=== PATIENT | male | born 1950 | race Caucasian/White ===

== ENCOUNTER → 2017-03-30 | Outpatient (CLI) | payer MEDICARE, OTHER | LOC: COL.RAD 08:26 | DX: M25.511 Pain in right shoulder (principal) | CPT/HCPCS: J3301; Q9967 ==

== ENCOUNTER → 2017-05-28 | Outpatient (CLI) | payer MEDICARE, OTHER | LOC: COL.RAD 14:00 | DX: M75.101 Unspecified rotator cuff tear or rupture of right shoulder, not specified as traumatic (principal) | CPT/HCPCS: J3301; Q9967 ==

== ENCOUNTER 2017-08-03 14:42 | Inpatient (IN) | payer MEDICARE, OTHER ==
[~2017-08-03] VITALS: Ht 170.2 cm; Wt 74.7 kg
[2017-09-17] VITALS (12 sets, daily range): BP systolic 110–127; BP diastolic 64–73; PULSE 64–99; TEMP 97.7–98.5
[2017-09-17] MEDS ORDERED: CARDURA 8MG TAB8 MG PO (05:30)
[2017-09-17] MEDS ORDERED: ULTRAM 50MG TAB50 MG PO (05:30)
[2017-09-18 00:17] VITALS: BP 108/64; PULSE 67; TEMP 98.2
[2017-09-18 04:11] VITALS: BP 106/58; PULSE 75; TEMP 98.2
[2017-09-18 07:27] VITALS: BP 108/69; PULSE 75; TEMP 97.9
[2017-09-18] MEDS ORDERED: NORCO 325 MG-7.1 TAB PO (10:46)
[2017-09-18] MEDS ORDERED: ASPIRIN 32325 MG/TAB PO (10:46)
== END 2017-09-18 10:58 | disposition home or self-care (01) | DRG 483 ==
LOC: JCC 09-17 05:14
PROVIDERS: Orthopaedic Surgery
PROC: 0RRJ00Z Replacement of Right Shoulder Joint with Reverse Ball and Socket Synthetic Substitute, Open Approach (ICD-10-PCS; principal; 2017-09-17 07:30)
DX: M19.011 Primary osteoarthritis, right shoulder (principal); Z87.891 Personal history of nicotine dependence
CPT/HCPCS: A9284; C1713; C1776; J0690; J1100; J1170; J1885; J2270; J2405; J2704; J3010; J7120

== ENCOUNTER → 2017-09-10 | Outpatient (CLI) | payer MEDICARE, OTHER ==
[2017-09-10 18:06] LABS: HIV 1/2 Antibodies Non-Reactive; HIV-1p24 Antigen Non-Reactive
== END ==
LOC: COL.LAB 17:10
PROVIDERS: Orthopaedic Surgery
DX: Z01.812 Encounter for preprocedural laboratory examination (principal)

== ENCOUNTER 2022-11-12 10:30 | Outpatient (RCR) | payer MEDICARE, OTHER ==
[~2022-11-12 10:30] MED LIST: ASPIRIN 32325 MG/TAB PO; CARDURA 8MG TAB8 MG PO; NORCO 325 MG-7.1 TAB PO; ULTRAM 50MG TAB50 MG PO
== END 2022-11-20 | disposition home or self-care (01) ==
LOC: WSPT
DX: M25.571 Pain in right ankle and joints of right foot (principal)

== ENCOUNTER 2022-12-19 10:30 | Outpatient (RCR) | payer MEDICARE, OTHER | END 2022-12-20 | disposition home or self-care (01) | LOC: WSPT | DX: M25.571 Pain in right ankle and joints of right foot (principal) ==

== ENCOUNTER 2023-02-16 10:36 | Outpatient (RCR) | payer MEDICARE, OTHER | END 2023-02-19 | disposition home or self-care (01) | LOC: WSPT | DX: M25.571 Pain in right ankle and joints of right foot (principal); Z98.890 Other specified postprocedural states ==

== ENCOUNTER 2023-03-02 12:45 | Outpatient (RCR) | payer MEDICARE, OTHER | END 2023-03-22 | disposition home or self-care (01) | LOC: WSPT | DX: M25.571 Pain in right ankle and joints of right foot (principal); Z96.661 Presence of right artificial ankle joint ==